=== PATIENT | male | born 1965 | race Caucasian/White ===

== ENCOUNTER → 2025-02-10 19:20 | Outpatient (REF) | payer OTHER, SELFPAY | LOC: MRI 3T 19:20 | PROVIDERS: ATTENDING PHYSICIAN Specialist; FAMILY PHYSICIAN Family Medicine | DX: R97.20 Elevated prostate specific antigen [PSA] (principal) | CPT/HCPCS: 72197; A9575 ==

== ENCOUNTER 2025-03-12 06:27 | Outpatient (RCR) | payer OTHER, SELFPAY | END 2025-03-12 23:59 | disposition home or self-care (01) | LOC: RPT 06:27 | PROVIDERS: ATTENDING PHYSICIAN Urology; FAMILY PHYSICIAN Family Medicine | DX: C61 Malignant neoplasm of prostate (principal); Z73.6 Limitation of activities due to disability | CPT/HCPCS: 97161; 97530 ==